=== PATIENT | female | born 1970 | race Caucasian/White ===

== ENCOUNTER 2019-03-09 03:10 | Emergency (ER) | payer OTHER ==
[~2019-03-09] VITALS: Ht 165.1 cm; Wt 52.2 kg
[2019-03-09] MEDS ORDERED: TOPROL XL25 MG (04:47)
[2019-03-09] MEDS ORDERED: LISI5 (04:47)
[2019-03-09] MEDS ORDERED: GABA300 (04:47)
[2019-03-09] MEDS ORDERED: PRED10 (04:49)
[2019-03-09] MEDS ORDERED: LEVSOD25 (04:49)
[2019-03-09] MEDS ORDERED: WARF1 (04:49)
[2019-03-09] MEDS ORDERED: Synthroid125 MCG PO (05:34)
[2019-03-09] MEDS ORDERED: HYDR1TAB94 PO (05:34)
[2019-03-09] MEDS ORDERED: Cyclobenzaprine5 MG PO (05:34)
== END 2019-03-09 09:27 | disposition home or self-care (01) ==
LOC: ER 03:10
DX: S16.1XXA Strain of muscle, fascia and tendon at neck level, initial encounter (principal); S63.601A Unspecified sprain of right thumb, initial encounter; J45.909 Unspecified asthma, uncomplicated; E03.9 Hypothyroidism, unspecified; Z86.73 Personal history of transient ischemic attack (TIA), and cerebral infarction without residual deficits; V89.2XXA Person injured in unspecified motor-vehicle accident, traffic, initial encounter
CPT/HCPCS: 70450; 72070; 72125; 99284-25; A9270-GY